=== PATIENT | female | born 1970 | race Caucasian/White ===

== ENCOUNTER 2017-03-21 12:59 | Outpatient (RCR) | payer OTHER, SELFPAY ==
[2017-03-21 15:26] LABS: Creatinine, Serum 0.58 mg/dL (0.55-1.02); EST Glomerular Filtration Rate 119 mL/min (>60); Est Glom Filt Rate - Afr Amer 144 mL/min (>60); Potassium 3.5 mmol/L (3.5-5.1)
[2017-03-21 15:37] LABS: Absolute Lymphocyte Count 1.86 X10^3/ul (0.83-4.51); Absolute Neutrophil Count 2.4 X10^3/uL (2.0-7.7); Basophil# 0.05 X10^3/uL; Basophil% 0.9 % (0-1); Eosinophils% 14.6 % (0-5); Hemoglobin 11.1 g/dl (12.0-15.0); Lymphocyte # 1.86 X10^3/ul (4.0); Lymphocyte % 33.9 % (19-41); Mean Corp Hgb Conc 30.8 g/gl (32-36); Mean Corpuscular Hgb 30.6 pg (27.0-32.0); Mean Corpuscular Volume 99.2 fL (81-99); Monocyte# 0.39 X10^3/uL; Monocyte% 7.1 % (0-10); Neutrophil # 2.38 X10^3/uL (2.7-7.7); Neutrophil % 43.5 % (47-70); Platelet Count 270 K/mm3 (150-450); RBC Distribution Width CV 18.6 % (11.6-14.6); RBC Distribution Width SD 68.1 fl (35.1-43.9); Red Blood Count 3.63 M/mm3 (4.2-5.4); White Blood Count 5.5 K/mm3 (4.4-11.0)
[2017-03-21 15:38] LABS: Differential Indicated SCAN CRITERIA MET; POSITIVE COUNT NO; POSITIVE DIFFERENTIAL NO; POSITIVE MORPHOLOGY YES
[2017-03-21 15:55] LABS: Anisocytosis 1+; Differential Comment SCANNED
== END 2017-04-19 23:59 ==
LOC: HHLAB 12:59
DX: K95.81 Infection due to other bariatric procedure (principal); Z46.82 Encounter for fitting and adjustment of non-vascular catheter; Z51.81 Encounter for therapeutic drug level monitoring
CPT/HCPCS: 82565; 84132; 85025

== ENCOUNTER → 2017-03-22 12:32 | Outpatient (CLI) | payer OTHER, SELFPAY ==
[2017-03-22] MEDS: Alteplase 2 MG/2 ML Vial 4 MG IV (13:12)
== END ==
DX: Z46.82 Encounter for fitting and adjustment of non-vascular catheter (principal)
CPT/HCPCS: 36593; J2997; A4216